=== PATIENT | female | born 1955 | race Caucasian/White ===

== ENCOUNTER → 2023-06-25 12:38 | Outpatient (BNVA) | payer MEDICARE, SELFPAY | PROVIDERS: Visit Provider Podiatrist Foot & Ankle Surgery | DX: L60.0 Ingrowing nail (principal) | CPT/HCPCS: 11750; 99203; A6219 ==

== ENCOUNTER → 2023-07-09 11:00 | Outpatient (BNVA) | payer MEDICARE, SELFPAY | PROVIDERS: Visit Provider Podiatrist Foot & Ankle Surgery | DX: L60.0 Ingrowing nail (principal) | CPT/HCPCS: 99213 ==

== ENCOUNTER → 2023-11-14 07:59 | Outpatient (BNVA) | payer MEDICARE, SELFPAY | PROVIDERS: Visit Provider Podiatrist Foot & Ankle Surgery | DX: L60.0 Ingrowing nail (principal) | CPT/HCPCS: 99213 ==

== ENCOUNTER → 2023-11-29 11:24 | Outpatient (BNVA) | payer MEDICARE, SELFPAY | PROVIDERS: Visit Provider Podiatrist Foot & Ankle Surgery | DX: L60.0 Ingrowing nail (principal) | CPT/HCPCS: 99213 ==

== ENCOUNTER → 2024-02-04 12:49 | Outpatient (BNVA) | payer MEDICARE, SELFPAY | PROVIDERS: Visit Provider Nurse Practitioner Family | DX: L57.0 Actinic keratosis (principal); F42.4 Excoriation (skin-picking) disorder; D18.01 Hemangioma of skin and subcutaneous tissue; L81.4 Other melanin hyperpigmentation; L91.8 Other hypertrophic disorders of the skin | CPT/HCPCS: 17000; 99203 ==

== ENCOUNTER → 2024-02-21 10:32 | Outpatient (BNVA) | payer MEDICARE, SELFPAY | PROVIDERS: Visit Provider Nurse Practitioner Family | DX: F42.4 Excoriation (skin-picking) disorder (principal); D48.5 Neoplasm of uncertain behavior of skin; L57.0 Actinic keratosis; L81.4 Other melanin hyperpigmentation | CPT/HCPCS: 11102; 17000; 99213 ==

== ENCOUNTER → 2024-12-29 09:47 | Outpatient (BNVA) | payer MEDICARE, SELFPAY | DX: R53.83 Other fatigue (principal) | CPT/HCPCS: 80053; 84443; 85025; 86140; 86618; 86664; 86665; 86666; 86757 ==

== ENCOUNTER 2025-01-28 10:47 | Outpatient (CLI) | payer MEDICARE, SELFPAY ==
--- NOTE | 2025-01-28 11:02 | USCV_ITS ---
MagyMojgan wilder Age: 69 Gender: F : 1955 Exam Date: 01/28/2025 11:23 Ordering Phys: Jj Ortiz Technologist: Exam Location: [facility] [place] Indication: opthamic art occlusion Risk Factors: Previous Vascular Surgery: Right Brachial BP: / Left Brachial BP: / Right Left Velocity (cm/s) Spectral Plaque Velocity (cm/s) Spectral Plaque Syst/Diast Broadening Syst/Diast Broadening 47.80/ 11.50 Prox CCA 64.10 / 15.30 60.80/ 15.40 Mid CCA 66.70 / 19.10 50.40/ 15.40 Distal CCA 70.50 / 19.10 56.90/ 14.10 Prox ICA 65.40 / 20.40 58.20/ 24.50 Mid ICA 70.50 / 20.40 58.20/ 23.20 Distal ICA 55.20 / 20.90 51.70 ECA 48.70 1.20 ICA/CCA 1.00 Antegrade Vertebral Antegrade 27.00/ 12.00 cm/s 33.50/ 13.30 cm/s Tri Subclavian Tri 82.10 70.30 CONCLUSIONS Right ICA stenosis <50%. Mild atheromatous plaque right carotid bulb/ICA. Left ICA stenosis <50%. Mild atheromatous plaque left carotid bulb/ICA. Intimal thickening in the common carotid arteries and internal carotid arteries bilaterally. Normal antegrade Doppler flow noted in the right vertebral artery. Normal antegrade Doppler flow noted in the left vertebral artery. Angel Sanders MD (Electronically Signed) Final Date: 28 January 2025 15:22 S
== END 2025-01-28 10:48 | disposition home or self-care (01) ==
LOC: RAD 10:53
PROVIDERS: PCP Family Medicine; Visit Provider Student in an Organized Health Care Education/Training Program
DX: H34.8122 Central retinal vein occlusion, left eye, stable (principal); I65.23 Occlusion and stenosis of bilateral carotid arteries
CPT/HCPCS: 93880

== ENCOUNTER → 2025-02-11 14:27 | Outpatient (BNVA) | payer MEDICARE, SELFPAY | PROVIDERS: PCP Family Medicine; Visit Provider Family Medicine | DX: R51.9 Headache, unspecified (principal) | CPT/HCPCS: 85025; 85651; 86140 ==

== ENCOUNTER → 2025-02-22 10:15 | Outpatient (BNVA) | payer MEDICARE, SELFPAY | PROVIDERS: PCP Family Medicine; Visit Provider Nurse Practitioner Family | DX: L24.9 Irritant contact dermatitis, unspecified cause (principal); L82.1 Other seborrheic keratosis; D18.01 Hemangioma of skin and subcutaneous tissue; L81.4 Other melanin hyperpigmentation; D48.5 Neoplasm of uncertain behavior of skin; L57.0 Actinic keratosis | CPT/HCPCS: 11102; 17000; 99214 ==